=== PATIENT | male | born 1955 | race Caucasian/White ===

== ENCOUNTER 2018-05-25 13:37 | Emergency (ER) | payer OTHER ==
--- NOTE | 2018-05-25 13:40 | EDPHY ---
H & P Time Seen by Provider: 05/25/18 13:39 HPI/ROS: CHIEF COMPLAINT: Severe headache, left-sided weakness. Brought in emergently by paramedics as a stroke alert. HISTORY OF PRESENT ILLNESS: The patient presents to the ED with a severe 10/10 headache and left-sided weakness that began acutely at 12:15 p.m. today. The patient denies prior history of stroke or TIA. The patient reports he takes aspirin. The patient denies anticoagulant use. The the patient does report he has had several days of intermittent dysarthria. He denies any drug or alcohol use. The patient does take Xanax and Benadryl chronically. The patient denies any history of fall or trauma. He denies neck pain. REVIEW OF SYSTEMS: A comprehensive 10 point review of systems is otherwise negative aside from elements mentioned in the history of present illness. Source: Patient Exam Limitations: No limitations - Physical Exam Exam: General Appearance: Alert, no distress Eyes: Pupils equal and round no pallor or injection ENT, Mouth: Mucous membranes moist Respiratory: There are no retractions, lungs are clear to auscultation Cardiovascular: Regular rate and rhythm Gastrointestinal: Abdomen is soft and nontender, no masses, bowel sounds normal Neurological: Alert and oriented x4, left facial weakness noted, mild pronator drift noted in the left arm, no appreciable leg weakness noted Skin: Warm and dry, no rashes Musculoskeletal: Neck is supple nontender Extremities: symmetrical, full range of motion Constitutional: Initial Vital Signs Temperature (C) 36.2 C 05/25/18 13:50 Heart Rate 74 05/25/18 13:50 Respiratory Rate 18 05/25/18 13:50 Blood Pressure 151/114 H 05/25/18 13:50 O2 Sat (%) 96 05/25/18 13:50 O2 Delivery Mode Room Air Allergies/Adverse Reactions: lisinopril Allergy (Verified 05/25/18 14:04) Vomiting shellfish derived Allergy (Verified 05/25/18 14:04) Home Medications: Medication Instructions Recorded ALPRAZolam 05/25/18 Aspirin 05/25/18 Coreg 05/25/18 Lasix 05/25/18 Synthroid 05/25/18 hydrALAZINE 05/25/18 Medical Decision Making - Diagnostics EKG Interpretation: EKG: Complete interpretation has been separately recorded in the [email or web address] archive. Summary impression: Atrial fibrillation, rate 82 Imaging Results: Imaging Impressions Head CT 05/25/18 13:38 Impression: No acute intracranial process. Findings and recommendations discussed with Layton Tse at 1350 hour, 05/25. CT head angiography: Negative for flow limiting stenosis, dissection or occlusion. CT angiography neck: Negative for dissection or critical stenosis. Images reviewed by myself and discussed with radiologist Dr. Tracey. ED Course/Re-evaluation: Patient presents the emergency department with an acute stroke syndrome. He was met by myself in the hallway upon arrival. He was taken immediately for a stat noncontrast head CT scan at 1:[address] scan demonstrates no evidence of intracranial hemorrhage. The patient was evaluated by Dr. Izabel Santiago from [facility] who felt the patient is not a candidate for tPA given the duration of his symptoms of a dysarthria for several days. Further workup planned for the emergency department including CT and CTA. EKG does demonstrate rate controlled atrial fibrillation with a rate of 82. The patient is not anticoagulated. CT and CTA demonstrate no evidence of a critical stenosis or dissection. We currently have no neuro beds at the hospital. The patient is a [place] patient and would like to be transferred. I spoke with the [facility] physician who has made arrangements for the patient to be directly admitted by Dr. Rolle. I have filled out an EMTALA transfer form. Patient was re-evaluated prior to transfer. His facial weakness is actually improving. Differential Diagnosis: Differential diagnosis considered includes stroke, TIA, intracranial hemorrhage , metabolic derangement Critical Care Time: Critical care time exclusive of procedures and exclusive of the PA's time was 35 minutes, performed by myself, Layton Tse MD. The patient is brought in emergently is an acute stroke alert for acute neurologic symptoms. He was seen in consultation by the tele neurologist. He is not a candidate for thrombolytics therapy however will require admission to the hospital for further evaluation and workup of his weakness. - Data Points Laboratory Results: Laboratory Results 05/25/18 13:54 05/25/18 13:54 05/25/18 05/25/18 05/25/18 13:56 13:54 13:54 WBC RBC Hgb POC Hgb 19.4 gm/dL H gm/dL (13.7-17.5) Hct POC Hct 57 % H % (40-51) MCV MCH MCHC RDW Plt Count MPV Neut % (Auto) Lymph % (Auto) Barbour % (Auto) Eos % (Auto) Baso % (Auto) Nucleat RBC Rel Count Absolute Neuts (auto) Absolute Lymphs (auto) Absolute Monos (auto) Absolute Eos (auto) Absolute Basos (auto) Absolute Nucleated RBC Immature Gran % Immature Gran # PT Pending INR Pending POC Sodium 144 mEq/L mEq/L (135-145) Sodium REJ POC Potassium 3.9 mEq/L mEq/L (3.3-5.0) Potassium REJ POC Chloride 103 mEq/L mEq/L (97-110) Chloride REJ Carbon Dioxide REJ POC Total CO2 30 mEq/L mEq/L (22-31) Anion Gap REJ POC BUN 25 mg/dL H mg/dL (7-23) BUN REJ Creatinine REJ POC Creatinine 1.3 mg/dL mg/dL (0.7-1.3) Estimated GFR REJ Glucose REJ POC Glucose 87 mg/dL mg/dL (70-100) Calcium REJ POC Troponin I 05/25/18 05/25/18 05/25/18 13:54 13:54 13:53 WBC 7.29 10^3/uL 10^3/uL (3.80-9.50) RBC 5.29 10^6/uL 10^6/uL (4.40-6.38) Hgb 18.1 g/dL H g/dL (13.7-17.5) POC Hgb Hct 53.7 % H % (40.0-51.0) POC Hct MCV 101.5 fL H fL (81.5-99.8) MCH 34.2 pg H pg (27.9-34.1) MCHC 33.7 g/dL g/dL (32.4-36.7) RDW 15.8 % H % (11.5-15.2) Plt Count 181 10^3/uL 10^3/uL (150-400) MPV 11.9 fL H fL (8.7-11.7) Neut % (Auto) 65.9 % % (39.3-74.2) Lymph % (Auto) 18.5 % % (15.0-45.0) Barbour % (Auto) 11.2 % % (4.5-13.0) Eos % (Auto) 2.1 % % (0.6-7.6) Baso % (Auto) 1.5 % % (0.3-1.7) Nucleat RBC Rel Count 0.0 % % (0.0-0.2) Absolute Neuts (auto) 4.80 10^3/uL 10^3/uL (1.70-6.50) Absolute Lymphs (auto) 1.35 10^3/uL 10^3/uL (1.00-3.00) Absolute Monos (auto) 0.82 10^3/uL H 10^3/uL (0.30-0.80) Absolute Eos (auto) 0.15 10^3/uL 10^3/uL (0.03-0.40) Absolute Basos (auto) 0.11 10^3/uL H 10^3/uL (0.02-0.10) Absolute Nucleated RBC 0.00 10^3/uL 10^3/uL (0-0.01) Immature Gran % 0.8 % % (0.0-1.1) Immature Gran # 0.06 10^3/uL 10^3/uL (0.00-0.10) PT REJ INR REJ POC Sodium Sodium POC Potassium Potassium POC Chloride Chloride Carbon Dioxide POC Total CO2 Anion Gap POC BUN BUN Creatinine POC Creatinine Estimated GFR Glucose POC Glucose Calcium POC Troponin I 0.01 ng/mL ng/mL (0.00-0.08) Point of Care Test Results: Chemistry 05/25/18 05/25/18 13:56 13:53 POC Sodium 144 mEq/L mEq/L (135-145) POC Potassium 3.9 mEq/L mEq/L (3.3-5.0) POC Chloride 103 mEq/L mEq/L (97-110) POC Total CO2 30 mEq/L mEq/L (22-31) POC BUN 25 mg/dL H mg/dL (7-23) POC Creatinine 1.3 mg/dL mg/dL (0.7-1.3) POC Glucose 87 mg/dL mg/dL (70-100) POC Troponin I 0.01 ng/mL ng/mL (0.00-0.08) ISTAT H&H 05/25/18 13:56 POC Hgb 19.4 gm/dL H gm/dL (13.7-17.5) POC Hct 57 % H % (40-51) Departure - Departure Disposition: Acute Care Hospital Not [facility] Clinical Impression: Acute ischemic stroke, Atrial fibrillation Condition: Good Referrals: Patient,NotPresent [Unknown] - As per Instructions
--- NOTE | 2018-05-25 14:08 | PDCONSULT ---
C[employer] Note: [place] Telehealth Note Demographics Consult Type: Acute Stroke First Name: Nathan Last Name: Christi Date of : 1955 Age: 63 Gender: Male Referring Provider: Dr Tse Time of initial page (): 05/25/2018 13:46 Time of return call (): 05/25/2018 13:46 Time Ready to Initiate Telemed Consult (): 05/25/2018 13:46 HPI Additional History (Free Text): 63 yo M presenting to the ED with sudden onset of JACKSON at noon. Left sided weakness also noted by EMS upon arrival to his home. On further history patient states he has been having changes in his speech for the last few days. [facility]-- Past Medical History: coronary artery disease, CHF, Hypothyroidism, "V-fib" Medications: aspirin, Alprazolam Exam Vitals: vital signs reviewed SBP: 148 Additional Neuro Exam: Patient dysarthric. Poor attention/concentration, lethargic. Mild L facial weakness and LUE drift. NIHSS Time (): 05/25/2018 14:00 LOC 1a: 1 = Not alert; but arousable by minor stimulation to obey, answer, or respond LOC 1b: 0 = Answers both questions correctly LOC Commands: 0 = Performs both tasks correctly Best Gaze: 0 = Normal Visual: 0 = No visual loss Facial Palsy: 1 = Minor paralysis (flattened nasolabial fold, asymmetry on smiling) Motor Arm L: 1 = Drift; limb holds 90 (or 45) degrees, but drifts down before full 10 seconds; does not hit bed or other support Motor Arm R: 0 = No drift; limb holds 90 (or 45) degrees for full 10 seconds Motor Leg L: 0 = No drift; leg holds 30-degree position for full 5 seconds Motor Leg R: 0 = No drift; leg holds 30-degree position for full 5 seconds Limb Ataxia: 0 = Absent Sensory: 0 = Normal; no sensory loss Best Language: 0 = No aphasia; normal Dysarthria: 1 = [id number] dysarthria; patient slurs at least some words Extinction + Inattention: 0 = No abnormality NIHSS: [address]: no bleed Assessment Impression: Speech changes, L sided weakness, headache, lethargy. Concern for possible acute /subacute stroke, intoxication/medication reaction, acute encephalopathy Plan Lytic/Intervention: NOT IV or IA candidate tPA Exclusion: > 4.5 hr Labs: Ammonia, B 12, CBC, Comprehensive metabolic panel, HgbA1c, Lipid Panel, Troponin, TSH, UA, UDS Imaging: CTA Head and Neck STAT, Please call me back with results STEPHANIE if there are signs of occlusion or dissection, MRI brain without Other: I have discussed my recommendations with the referring provider Additional Recommendations: Further stroke workup pending results of CTA head and neck, lab results and MRI brain Disposition: admit [facility] Telemedicine: Interactive 2 way audio and visual telecommunication technology was utilized during this visit. Provider Location: [place] electronically signed by Dr. Cho on: Velma 2018-05-25 14:03
[2018-05-25 14:13] LABS: PLATELET COUNT 181 10^3/uL (150-400)
[2018-05-25] MEDS ORDERED: IOPAMIDOL (ISOVUE 370) 100 ML BTL IV ONE (14:21)
[2018-05-25 15:11] VITALS: BP 149/109
--- NOTE | 2018-05-25 15:22 | CPEKG ---
Test Reason : OPEN Blood Pressure : / mmHG Vent. Rate : 082 BPM Atrial Rate : 000 BPM P-R Int : 048 ms QRS Dur : 094 ms QT Int : 443 ms P-R-T Axes : 000 -44 089 degrees QTc Int : 518 ms Atrial fibrillation Ventricular premature complex Inferior infarct, old Anteroseptal infarct, old Lateral leads are also involved Confirmed by Layton Tse ([id number]) on 05/25/2018 3:22:14 PM Referred By: Layton Tse Confirmed By:Layton Tse
[2018-05-25 15:34] LABS: INR 1.14 (0.83-1.16); PROTIME(PATIENT) 14.1 SEC (12.0-15.0)
== END 2018-05-25 15:36 | disposition short-term general hospital (02) ==
DX: I63.9 Cerebral infarction, unspecified (principal); I48.91 Unspecified atrial fibrillation; R29.810 Facial weakness; Z79.82 Long term (current) use of aspirin
CPT/HCPCS: 82435-PO; 82565-PO; 82947-PO; 84132-PO; 84295-PO; 84484-ER; 84520-PO; 85014-ER; 96374; J2270; Q9967